=== PATIENT | male | born 1950 | race Caucasian/White ===

== ENCOUNTER 2017-01-22 06:31 | Day surgery (SDC) | payer MEDICARE, BC ==
--- NOTE | 2017-01-21 11:42 | PCM.PREANE ---
<Louie Prieto - Last Filed: 01/22/17 07:01> Preanesthetic Assessment - Allergies Allergies/Adverse Reactions: Allergies Allergy/AdvReac Type Severity Reaction Status Date / Time No Known Allergies Allergy Verified 03/07/15 09:31 PreAnesthesia Questionnaire - HOME MEDS Home Medications: Home Meds Aspirin [Halfprin] 1 tab PO DAILY 03/07/15 [History] Clopidogrel Bisulfate [Plavix] 75 mg PO DAILY 01/18/17 [History] Lisinopril 0.5 tab PO DAILY 01/18/17 [History] Metoprolol Tartrate 0.5 tab PO DAILY 01/18/17 [History] Nitroglycerin [Nitrostat] 1 tab SL ASDIRECTED PRN 01/18/17 [History] atorvaSTATin Calcium [Atorvastatin Calcium] 40 mg PO DAILY 01/18/17 [History] - CURRENT (IN HOUSE) MEDS Current Meds: Current Medications Lactated Ringer's (Ringers, Lactated) 1,000 mls @ 100 mls/hr IV ASDIRECTED [facility] Last Admin: 01/22/17 06:49 Dose: 100 mls/hr Discontinued Medications Cefazolin Sodium/Dextrose 1 gm (/ Premix) 50 mls @ 100 mls/hr IV ONCALL ONE Stop: 01/22/17 00:30 Preanesthetic Assessment - REVIEW OF SYSTEMS Constitutional: Reports: no symptoms CONTENT MANAGER: Reports: no symptoms Respiratory: Reports: no symptoms Cardiovascular: Reports: no symptoms GI: Reports: no symptoms Other: Reports: None - PHYSICAL ASSESSMENT Vital Signs: Last Vital Signs Temp 98.1 F 01/22/17 06:46 Pulse 64 01/22/17 06:46 Resp 14 01/22/17 06:46 BP 121/81 01/22/17 06:46 Pulse Ox 99 01/22/17 06:46 ASA Class: 3 Mental Status: Alert & Oriented x3 Airway Class: Mallampati = 2 Dentition: Reports: Partial (upper), Missing Tooth/Teeth (lower frontal irregular teeth) ROM/Head Extension: Full Respiratory Status: lungs clear to auscultation bilaterally Cardiovascular Status: regular rate & rhythm, no murmur - ALLERGIES Allergies/Adverse Reactions: Allergies Allergy/AdvReac Type Severity Reaction Status Date / Time No Known Allergies Allergy Verified 03/07/15 09:31 - BLOOD Blood Available: No Product(s) Available: None - ANESTHESIA PLAN Preop Beta Estevan: Yes Beta Estevan: Metoprolol Anesthesia Type Planned: General Anesthesia (LMA vs OETT (discuss with surgeon)) - ACKNOWLEDGEMENTS Pt an Appropriate Candidate for the Planned Anesthesia: Yes Alternatives and Risks of Anesthesia Discussed w Pt/Guardian: Yes Pt/Guardian Understands and Agrees with Anesthesia Plan: Yes <Allen Patel - Last Filed: 02/25/17 20:28> PreAnesthesia Questionnaire Other HEENT History: upper partial Cardiovascular History: Reports: Cardiomyopathy, High cholesterol, Hypertension , [place], Stents Other Cardiovascular History: AMI on Oct 14, 2015, coronary stents placed Oct 14 and Oct 162014. Doing well. Passed stress test 12/19/15. plavix stopped 8 day ago, asa continued. Mild CHF -- EF of 40-45% 16 months ago. 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 2015 from Prostate Ca Neurological Surgical History: Reports: Lumbar spine Other Neurological Surgeries/Procedures: hx back surgery - SUBSTANCE USE Smoking Status *Q: Never Smoker Second Hand Smoke Exposure: No Days Per Week of Alcohol Use: 0 Number of Drinks Per Day: 0 Total Drinks Per Week: 0 Recreational Drug Use History: No Preanesthetic Assessment - ANESTHESIA/TRANSFUSION/FAMILY HX Anesthesia/Transfusion History: No Prior Transfusion(s), Prior Anesthesia Other Type of Anesthesia Reaction Comment: Denies any known problem in past, ' maybe little motion sickness' Family History of Anesthesia Reaction: No Intubation History: Unknown - PHYSICAL ASSESSMENT Vital Signs: Last Vital Signs Temp 98.1 F 01/22/17 06:46 Pulse 64 01/22/17 06:46 Resp 14 01/22/17 06:46 BP 121/81 01/22/17 06:46 Pulse Ox 99 01/22/17 06:46 Height: 1.8 m Weight: 0 g ASA Class: 3
[~2017-01-22 06:31] MED LIST: Lactated Ringers 1,000 ML IV SCH; ceFAZolin 1 GM in Premix Bag 1 BAG IV ONE
[2017-01-22] MEDS ORDERED: fentaNYL 100 MCG/2 ML SDV ONE ×2 (07:28→09:26)
[2017-01-22] MEDS ORDERED: Bupivacaine 0.5% 10 ML SDV ONE (07:28)
[2017-01-22] MEDS ORDERED: Midazolam 1 MG/ML 2 ML SDV ONE (07:28)
[2017-01-22] MEDS ORDERED: Propofol 200 MG/20 ML SDV ONE (07:28)
[2017-01-22] MEDS ORDERED: Rocuronium 10 MG/ML 10 ML Syringe ONE (07:28)
[2017-01-22] MEDS ORDERED: Lidocaine 2% 5 ML SDV ONE (07:28)
[2017-01-22] MEDS ORDERED: Phenylephrine/Normal Saline 100 MCG/ML 10 ML Syringe ONE (08:18)
[2017-01-22] MEDS ORDERED: fentaNYL 100 MCG/2 ML SDV IVPUSH PRN (08:27)
[2017-01-22] MEDS ORDERED: Ketorolac 30 MG/ML SDV ONE (08:32)
[2017-01-22] MEDS ORDERED: Ondansetron 4 MG/2 ML SDV ONE (08:32)
--- NOTE | 2017-01-22 10:23 | PCM.POSTAN ---
POST ANESTHESIA ASSESSMENT - MENTAL STATUS Mental Status: alert, oriented - RESPIRATORY Respiratory Status: respiratory rate WNL, airway patent, O2 saturation stable - CARDIOVASCULAR CV Status: pulse rate WNL, blood pressure stable - GASTROINTESTINAL GI Status: no symptoms - POST OP HYDRATION Hydration Status: adequate & stable
--- NOTE | 2017-01-22 11:32 | PCM48HPAN ---
Post Anesthesia Note - EVALUATION WITHIN 48HRS OF ANESTHETIC Vital Signs in Normal Range: Yes Patient Participated in Evaluation: Yes Respiratory Function Stable: Yes Airway Patent: Yes Cardiovascular Function Stable: Yes Hydration Status Stable: Yes Pain Control Satisfactory: Yes Nausea and Vomiting Control Satisfactory: Yes Mental Status Recovered: Yes
[2017-01-22 12:06] VITALS: BP 106/71
--- NOTE | 2017-01-22 17:08 | OR ---
SURGEON: Tanya Watters M.D. DATE OF PROCEDURE: 01/22/2017 PREOPERATIVE DIAGNOSIS: Right inguinal scrotal hernia. POSTOPERATIVE DIAGNOSIS: Right inguinal scrotal hernia. OPERATION: Repair of the same. DESCRIPTION OF PROCEDURE: The patient was given general anesthesia. He is in the supine position. His lower abdomen, external genitalia were all prepped and draped with sterile drapes. Right groin incision was made and carried all the way down to the external oblique aponeurosis. It was then cut. The hernia sac was identified. The distal part was and left behind. The proximal part was closed with a pursestring of 2-0 silk suture. The defect was then repaired using conjoint tendon after a relaxing incision was made. The conjoint tendon was sutured using 0 silk interrupted sutures to the base of the inguinal ligament. The cord structures were then placed back in the inguinal canal and the external oblique aponeurosis was closed using interrupted 2-0 silk sutures. The subcutaneous tissue was reapproximated with 3-0 chromic. The skin was closed with enzo. Estimated blood loss under 20 mL. The patient tolerated the procedure well and was moved to recovery room in good condition. JAMEEL / DUSTIN /[id number]
== END 2017-01-22 12:00 | disposition home or self-care (01) ==
LOC: MW.SDS 06:31
PROVIDERS: ATTEND Urology
DX: K40.90 Unilateral inguinal hernia, without obstruction or gangrene, not specified as recurrent (principal); I10 Essential (primary) hypertension; E78.00 Pure hypercholesterolemia, unspecified; E78.5 Hyperlipidemia, unspecified; Z79.82 Long term (current) use of aspirin; Z79.899 Other long term (current) drug therapy; Z85.46 Personal history of malignant neoplasm of prostate; Z98.890 Other specified postprocedural states; Z95.5 Presence of coronary angioplasty implant and graft
CPT/HCPCS: 49505; J0690; J1885; J2250; J2405; J3010; J7120; 00830; 88304; J2704

== ENCOUNTER 2017-09-19 17:39 | Emergency (ER) | payer MEDICARE, BC ==
[2017-09-19] MEDS ORDERED: Morphine 10 MG/ML Syringe IM ONE (18:49)
--- NOTE | 2017-09-19 18:50 | EDM.PDOC ---
ED HPI GENERAL MEDICAL PROBLEM - General Chief Complaint: Back Pain or Injury Stated Complaint: BACK PAIN Time Seen by Provider: 09/19/17 18:25 Source of Information: Reports: Patient, Family History Limitations: Reports: No Limitations - History of Present Illness INITIAL COMMENTS - FREE TEXT/NARRATIVE: HISTORY AND PHYSICAL: History of present illness: [Patient comes to the emergency room complaining of continued low back pain. He reports a history of herniated disks in his back and is scheduled to have surgery with Dr. Sharma in [place] on September 25. He has been taking numerous narcotics for his chronic low back pain over the past several months. In the past week, his pain has worsened significantly which he attributes to numerous car rides for a consultation with Dr. Sharma in [place] as well as with his [employer] in [place]. One week ago, he was prescribed Percocet 10/325 one half to one tablet every 4-6 hours as needed for discomfort by Dr. Chua his PCP. He's been taking 2 tablets at a time which is not at all improving his pain. He was advised by his PCP's office to come to the emergency room for evaluation of his pain. The patient states that his pain is no different than had been previously but it just feels worse and has not improved with Percocet. Has had pain in his right thigh which is unchanged. He denies any loss of bowel and bladder. No changes to urination or stools. Back has been very painful requiring him to crawl throughout the home. He does not have any assistive devices at his house. He is sitting in a wheelchair for this examination today.] Review of systems: As per history of present illness and below otherwise all systems reviewed and negative. Past medical history: As per history of present illness and as reviewed below otherwise noncontributory. Surgical history: As per history of present illness and as reviewed below otherwise noncontributory. Social history: No reported history of drug or alcohol abuse. Family history: As per history of present illness and as reviewed below otherwise noncontributory. Physical exam: Gen.: Well-developed well-nourished male in no acute distress. Sitting comfortably in wheelchair. HEENT: Atraumatic, normocephalic. Lungs: Clear to auscultation, breath sounds equal bilaterally. Heart: S1S2, regular rate and rhythm. Abdomen: Soft, nondistended, nontender. Negative for masses guarding and rebound. Genitourinary: Deferred. Rectal: Deferred. Extremities: Atraumatic, negative for cords or calf pain. Patellar reflexes are 2+ and equal bilaterally. Neurovascular unremarkable. Neuro: Awake, alert, oriented. Exam nonfocal. Therapeutics: [morphine 5mg IM] Impression: [low back pain, chronic] Plan: [Discussed with patient that he has already been taking maximum doses of narcotics that could be prescribed through this ER and that we can offer him IV/ IM medication for relief for tonight only, and that he is advised to follow up with his PCP tomorrow to discuss pain treatment options to get him through the weekend. He experiences significant relief in his pain and ambulates in exam room. Would like to be discharged to home. Continue all other medications as prescribed. All questions are answered and concerns are addressed. ] Definitive disposition and diagnosis as appropriate pending reevaluation and review of above. Lower Back Pain Score (Numeric/FACES): 12 - Related Data Allergies Allergy/AdvReac Type Severity Reaction Status Date / Time No Known Allergies Allergy Verified 09/19/17 17:49 Home Meds: Home Meds Lisinopril 1 tab PO BID 01/18/17 [History] Metoprolol Tartrate 1 tab PO BID 01/18/17 [History] atorvaSTATin Calcium [Atorvastatin Calcium] 40 mg PO DAILY 01/18/17 [History] Bisacodyl [Correctol] 5 mg PO DAILY 09/19/17 [History] oxyCODONE HCl/Acetaminophen [Percocet 10-325 mg Tablet] 1 tab PO Q4HR PRN [History] Past Medical History Other HEENT History: upper partial Cardiovascular History: Reports: Cardiomyopathy, High Cholesterol, Hypertension , [place], Stents Other Cardiovascular History: AMI on Oct 14, 2015, coronary stents placed Oct 14 and Oct 162014. Doing well. Passed stress test 12/19/15. plavix stopped 8 day ago, asa continued. Mild CHF -- EF of 40-45% 16 months ago. Genitourinary History: Reports: Prostate Disorder, Renal Calculus Musculoskeletal History: Reports: Osteoarthritis - Past Surgical History Head Surgeries/Procedures: Reports: None HEENT Surgical History: Reports: Tonsillectomy Cardiovascular Surgical History: Reports: Coronary Artery Stent Neurological Surgical History: Reports: Lumbar Spine Social & Family History - Family History Family Medical History: Noncontributory - Tobacco Use Smoking Status *Q: Never Smoker Years of Tobacco use: 0 Second Hand Smoke Exposure: No - Caffeine Use Caffeine Use: Reports: Coffee - Alcohol Use Days Per Week of Alcohol Use: 0 Number of Drinks Per Day: 0 Total Drinks Per Week: 0 - Recreational Drug Use Recreational Drug Use: No Drug Use in Last 12 Months: No ED ROS GENERAL - Review of Systems Review Of Systems: ROS reveals no pertinent complaints other than HPI. ED EXAM,LOWER BACK PAIN/INJURY - Physical Exam Exam: See Below Course - Vital Signs Last Recorded V/S: Last Vital Signs Temp 98.3 F 09/19/17 17:55 Pulse 68 09/19/17 19:42 Resp 16 09/19/17 19:42 BP 118/78 09/19/17 19:42 Pulse Ox 96 09/19/17 19:42 - Orders/Labs/Meds Meds: Medications Discontinued Medications Generic Name Dose Route Start Last Admin Trade Name aLni PRN Reason Stop Dose Admin Morphine Sulfate 5 mg 09/19/17 18:49 09/19/17 18:59 Morphine IM 09/19/17 18:50 5 mg ONETIME ONE Administration Departure - Departure Time of Disposition: 19:30 Disposition: Home, Self-Care 01 Condition: Good Clinical Impression: Back pain - Discharge Information Instructions: Back Pain, Adult Referrals: Major Chua MD [Primary Care Provider] - Forms: ED Department Discharge Additional Instructions: The following information is given to patients seen in the emergency department who are being discharged to home. This information is to outline your options for follow-up care. We provide all patients seen in our emergency department with a follow-up referral. The need for follow-up, as well as the timing and circumstances, are variable depending upon the specifics of your emergency department visit. If you don't have a primary care physician on staff, we will provide you with a referral. We always advise you to contact your personal physician following an emergency department visit to inform them of the circumstance of the visit and for follow-up with them and/or the need for any referrals to a consulting specialist. The emergency department will also refer you to a specialist when appropriate. This referral assures that you have the opportunity for follow-up care with a specialist. All of these measure are taken in an effort to provide you with optimal care, which includes your follow-up. Under all circumstances we always encourage you to contact your private physician who remains a resource for coordinating your care. When calling for follow-up care, please make the office aware that this follow-up is from your recent emergency room visit. If for any reason you are refused follow-up, please contact the [facility] emergency department at and asked to speak to the emergency department charge nurse. [address] [address] Follow-up with Dr. Chua tomorrow morning as we discussed. Return to ER as needed as discussed.
[2017-09-19 19:44] VITALS: BP 118/78
== END 2017-09-19 19:42 | disposition home or self-care (01) ==
LOC: MW.ED 17:39
DX: G89.29 Other chronic pain (principal); M54.5 Low back pain; Z79.899 Other long term (current) drug therapy
CPT/HCPCS: 96372; 99283; J2270; 99281

== ENCOUNTER 2018-08-02 13:46 | Emergency (ER) | payer MEDICARE, BC ==
[2018-08-02] MEDS ORDERED: Sodium Chloride 0.9% 2.5 ML Syringe FLUSH PRN (14:05)
[2018-08-02] MEDS ORDERED: Sodium Chloride 0.9% 10 ML Syringe FLUSH PRN (14:05)
--- NOTE | 2018-08-02 14:06 | EDM.PDOC ---
ED HPI GENERAL MEDICAL PROBLEM - General Chief Complaint: Fever Stated Complaint: SICK Time Seen by Provider: 08/02/18 13:48 Source of Information: Reports: Patient History Limitations: Reports: No Limitations - History of Present Illness INITIAL COMMENTS - FREE TEXT/NARRATIVE: History of present illness: []Having fevers and chills with violent shaking 5 days ago. His any chest congestion or cough, sore throat, headache, ear pain, abdominal pain or difficulty urinating. Review of systems: As per history of present illness and below otherwise all systems reviewed and negative. Past medical history: As per history of present illness and as reviewed below otherwise noncontributory. Surgical history: As per history of present illness and as reviewed below otherwise noncontributory. Social history: No reported history of drug or alcohol abuse. Family history: As per history of present illness and as reviewed below otherwise noncontributory. Physical exam: General: Well developed, well nourished in NAD HEENT: Atraumatic, normocephalic, pupils reactive, negative for conjunctival pallor or scleral icterus, mucous membranes moist, throat clear, neck supple, nontender, trachea midline. Lungs: Clear to auscultation, breath sounds equal bilaterally, chest nontender. Heart: S1S2, regular, negative for clicks, rubs, or JVD. Abdomen: Soft, nondistended, nontender. Negative for masses or hepatosplenomegaly. Negative for costovertebral tenderness. Pelvis: Stable nontender. Genitourinary: Deferred. Rectal: Deferred. Extremities: Atraumatic, negative for cords or calf pain. Neurovascular unremarkable. Neuro: Awake, alert, oriented. Cranial nerves II through XII unremarkable. Cerebellum unremarkable. Motor and sensory unremarkable throughout. Exam nonfocal. Skin:warm and dry Diagnostics: CBC normal, chemistry mildly low sodium, lactate, blood cultures, chest x-ray shows mild atelectasis with chronic fibrotic changes UA which patient refused to give. Therapeutics: IV hydrated with 1 L normal saline ED Course: Unremarkable Impression: As hot flashes and chills known etiology Prescriptions: None Plan: Follow-up with primary care after 48 hours REED symptoms worsen or change encourage deep breathing and cough. Definitive disposition and diagnosis as appropriate pending reevaluation and review of above. - Related Data Allergies Allergy/AdvReac Type Severity Reaction Status Date / Time No Known Allergies Allergy Verified 08/02/18 13:56 Home Meds: Home Meds Lisinopril 1 tab PO BID 01/18/17 [History] Metoprolol Tartrate 1 tab PO BID 01/18/17 [History] atorvaSTATin Calcium [Atorvastatin Calcium] 40 mg PO DAILY 01/18/17 [History] Past Medical History Other HEENT History: upper partial Cardiovascular History: Reports: Cardiomyopathy, High Cholesterol, Hypertension , [place], Stents Other Cardiovascular History: AMI on Oct 14, 2015, coronary stents placed Oct 14 and Oct 162014. Doing well. Passed stress test 12/19/15. plavix stopped 8 day ago, asa continued. Mild CHF -- EF of 40-45% 16 months ago. Genitourinary History: Reports: Prostate Disorder, Renal Calculus Musculoskeletal History: Reports: Osteoarthritis - Past Surgical History Head Surgeries/Procedures: Reports: None HEENT Surgical History: Reports: Tonsillectomy Cardiovascular Surgical History: Reports: Coronary Artery Stent Neurological Surgical History: Reports: Lumbar Spine Social & Family History - Family History Family Medical History: Noncontributory - Caffeine Use Caffeine Use: Reports: Coffee ED ROS GENERAL - Review of Systems Review Of Systems: ROS reveals no pertinent complaints other than HPI. ED EXAM, GENERAL - Physical Exam Exam: See Below (See history of present illness) Course - Vital Signs Last Recorded V/S: Last Vital Signs Temp 99.5 F 08/02/18 13:59 Pulse 83 08/02/18 13:59 Resp 18 08/02/18 13:59 BP 97/57 L 08/02/18 13:59 Pulse Ox 98 08/02/18 13:59 - Orders/Labs/Meds Orders: Active Orders 24 hr Category Date Time Status Chest 2V [CR] Stat Exams 08/02/18 14:05 Taken CULTURE BLOOD [BC] Stat Lab 08/02/18 14:26 Received CULTURE BLOOD [BC] Stat Lab 08/02/18 14:34 Received UA W/MICROSCOPIC [URIN] Stat Lab 08/02/18 14:06 Ordered Sodium Chloride 0.9% [Saline Flush] Med 08/02/18 14:05 Active 10 ml FLUSH ASDIRECTED PRN Sodium Chloride 0.9% [Saline Flush] Med 08/02/18 14:05 Active 2.5 ml FLUSH ASDIRECTED PRN Blood Culture x2 Reflex Set [OM.PC] Stat Oth 08/02/18 14:05 Ordered Saline Lock Insert [OM.PC] Stat Oth 08/02/18 14:05 Ordered Medication Orders Sodium Chloride (Saline Flush) 10 ml FLUSH ASDIRECTED PRN PRN Reason: Keep Vein Open Sodium Chloride (Saline Flush) 2.5 ml FLUSH ASDIRECTED PRN PRN Reason: Keep Vein Open Labs: Laboratory Tests 08/02/18 08/02/18 08/02/18 Range/Units 14:26 14:26 14:26 WBC 4.52 (4.0-11.0) K/uL RBC 5.05 (4.50-5.90) M/uL Hgb 14.7 (13.0-17.0) g/dL Hct 41.6 (38.0-50.0) % MCV 82.4 (80.0-98.0) fL MCH 29.1 (27.0-32.0) pg MCHC 35.3 (31.0-37.0) g/dL RDW Std Deviation 40.0 (28.0-62.0) fl RDW Coeff of [place] 13 (11.0-15.0) % Plt Count 175 (150-400) K/uL MPV 10.10 (7.40-12.00) fL Neut % (Auto) 77.2 (48.0-80.0) % Lymph % (Auto) 13.5 L (16.0-40.0) % [place] % (Auto) 9.1 (0.0-15.0) % Eos % (Auto) 0.0 (0.0-7.0) % Baso % (Auto) 0.2 (0.0-1.5) % Neut # (Auto) 3.5 (1.4-5.7) K/uL Lymph # (Auto) 0.6 (0.6-2.4) K/uL [place] # (Auto) 0.4 (0.0-0.8) K/uL Eos # (Auto) 0.0 (0.0-0.7) K/uL Baso # (Auto) 0.0 (0.0-0.1) K/uL Nucleated RBC % 0.0 /100WBC Nucleated RBCs # 0 K/uL Lactate 1.8 (0.20-2.00) mmol/L Sodium 131 L (136-148) mmol/L Potassium 3.9 (3.5-5.1) mmol/L Chloride 97 L (98-107) mmol/L Carbon Dioxide 28.8 (21.0-32.0) mmol/L BUN 14 (7.0-18.0) mg/dL Creatinine 1.0 (0.8-1.3) mg/dL Est Cr Clr Drug Dosing TNP Estimated GFR (MDRD) > 60.0 ml/min Glucose 94 (74-106) mg/dL Calcium 8.7 (8.5-10.1) mg/dL Total Bilirubin 0.9 (0.2-1.0) mg/dL AST 44 H (15-37) IU/L ALT 48 (14-63) IU/L Alkaline Phosphatase 87 (46-116) U/L Total Protein 6.2 L (6.4-8.2) g/dL Albumin 3.1 L (3.4-5.0) g/dL Globulin 3.1 (2.0-3.5) g/dL Albumin/Globulin Ratio 1.0 L (1.3-2.8) Meds: Medications Generic Name Dose Route Start Last Admin Trade Name Freq PRN Reason Stop Dose Admin Sodium Chloride 10 ml 08/02/18 14:05 Saline Flush FLUSH ASDIRECTED PRN Keep Vein Open Sodium Chloride 2.5 ml 08/02/18 14:05 Saline Flush FLUSH ASDIRECTED PRN Keep Vein Open Discontinued Medications Generic Name Dose Route Start Last Admin Trade Name Freq PRN Reason Stop Dose Admin Sodium Chloride 1,000 mls @ 999 mls/hr 08/02/18 14:12 08/02/18 14:27 Normal Saline IV 08/02/18 15:12 999 mls/hr .Bolus ONE Administration Departure - Departure Time of Disposition: 16:19 Disposition: Home, Self-Care 01 Condition: Good Clinical Impression: Chills (without fever) - Discharge Information *PRESCRIPTION DRUG MONITORING PROGRAM REVIEWED*: No *COPY OF PRESCRIPTION DRUG MONITORING REPORT IN PATIENT RA: No Referrals: Major Chua MD [Primary Care Provider] - Forms: ED Department Discharge Additional Instructions: The following information is given to patients seen in the emergency department who are being discharged to home. This information is to outline your options for follow-up care. We provide all patients seen in our emergency department with a follow-up referral. The need for follow-up, as well as the timing and circumstances, are variable depending upon the specifics of your emergency department visit. If you don't have a primary care physician on staff, we will provide you with a referral. We always advise you to contact your personal physician following an emergency department visit to inform them of the circumstance of the visit and for follow-up with them and/or the need for any referrals to a consulting specialist. The emergency department will also refer you to a specialist when appropriate. This referral assures that you have the opportunity for follow-up care with a specialist. All of these measure are taken in an effort to provide you with optimal care, which includes your follow-up. Under all circumstances we always encourage you to contact your private physician who remains a resource for coordinating your care. When calling for follow-up care, please make the office aware that this follow-up is from your recent emergency room visit. If for any reason you are refused follow-up, please contact the [facility] Emergency Department at and asked to speak to the emergency department charge nurse. Follow-up with Primary care encourage deep breathing and cough return to ER if symptoms worsen or change [facility] [address] [place] [id number] - My Orders Last 24 Hours: My Active Orders 08/02/18 14:05 Chest 2V [CR] Stat Sodium Chloride 0.9% [Saline Flush] 10 ml FLUSH ASDIRECTED PRN Sodium Chloride 0.9% [Saline Flush] 2.5 ml FLUSH ASDIRECTED PRN Blood Culture x2 Reflex Set [OM.PC] Stat Saline Lock Insert [OM.PC] Stat 08/02/18 14:06 UA W/MICROSCOPIC [URIN] Stat 08/02/18 14:26 CULTURE BLOOD [BC] Stat 08/02/18 14:34 CULTURE BLOOD [BC] Stat - Assessment/Plan Last 24 Hours: My Active Orders 08/02/18 14:05 Chest 2V [CR] Stat Sodium Chloride 0.9% [Saline Flush] 10 ml FLUSH ASDIRECTED PRN Sodium Chloride 0.9% [Saline Flush] 2.5 ml FLUSH ASDIRECTED PRN Blood Culture x2 Reflex Set [OM.PC] Stat Saline Lock Insert [OM.PC] Stat 08/02/18 14:06 UA W/MICROSCOPIC [URIN] Stat 08/02/18 14:26 CULTURE BLOOD [BC] Stat 08/02/18 14:34 CULTURE BLOOD [BC] Stat
[2018-08-02] MEDS ORDERED: Sodium Chloride 0.9% 1,000 ML IV ONE (14:12)
[2018-08-02 14:57] LABS: CHLORIDE,CL 97 mmol/L (98-107); SODIUM,NA 131 mmol/L (136-148)
[2018-08-02 16:35] VITALS: BP 122/52
--- NOTE | 2018-08-04 10:57 | CR ---
EXAM DATE: 08/02/18 PATIENT'S AGE: 68 Patient: WENDY VILLA Facility: [place], [place] Site . Site : [id number] Study: XRay Chest [id number]/[id number] 3:14:12 PM Ordering Physician: Michael Jones Final Report: INDICATION: Pain. Shortness of breath. TECHNIQUE: PA and lateral chest x-ray. FINDINGS: No comparison films. Fine nodular interstitial infiltrate in prominence throughout both lungs which if chronic can be fibrotic but if acute can be related to interstitial edema. Comparison with any available previous films or followup films suggested. Mild areas of linear atelectasis or scarring in both lungs. Heart size is within normal limits. Chest otherwise unremarkable. Dictated by Jamison Ann MD @ Aug 02 2018 3:28PM (Electronic Signature) Report Signed by Proxy. DAVIDA
== END 2018-08-02 16:32 | disposition home or self-care (01) ==
LOC: MW.ED 13:46
DX: R68.83 Chills (without fever) (principal); E78.00 Pure hypercholesterolemia, unspecified; I10 Essential (primary) hypertension; I25.2 Old myocardial infarction; Z95.5 Presence of coronary angioplasty implant and graft; Z79.899 Other long term (current) drug therapy
CPT/HCPCS: 36415; 71046; 80053; 83605; 85025; 87040; 96360; 99283; J7040

== ENCOUNTER 2021-11-05 09:34 | Emergency (ER) | payer MEDICARE, OTHER ==
[2021-11-05 10:01] VITALS: BP 115/69; PULSE 81
--- NOTE | 2021-11-05 10:03 | EDM.PDOC ---
ED HPI GENERAL MEDICAL PROBLEM - General Chief Complaint: Skin Complaint Stated Complaint: RASH Time Seen by Provider: 11/05/21 09:35 - History of Present Illness INITIAL COMMENTS - FREE TEXT/NARRATIVE: 71-year-old male presenting with burning rash to the right neck and shoulder. Patient developed a mild cough 4 days ago and this is essentially resolved but he had some discomfort on the right side particularly when laying down or when tired or short touch the area. 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 It was noticed by his this morning. No fevers no myalgias no sore throat or runny nose. Patient is not on any steroids or other immunocompromising medication he has no history of immune deficiency. Symptoms are constant and moderate without alleviating factors or radiation or other associated symptoms. - Related Data Allergies Allergy/AdvReac Type Severity Reaction Status Date / Time No Known Allergies Allergy Verified 08/02/18 13:56 Home Meds: Home Meds Lisinopril 1 tab PO BID 01/18/17 [History] Metoprolol Tartrate 1 tab PO BID 01/18/17 [History] atorvaSTATin Calcium [Atorvastatin Calcium] 40 mg PO DAILY 01/18/17 [History] valACYclovir [Valtrex] 1,000 mg PO TID 7 Days #21 tab 11/05/21 [Rx] Past Medical History Other HEENT History: upper partial Cardiovascular History: Reports: Cardiomyopathy, High Cholesterol, Hypertension, VA, Stents Other Cardiovascular History: AMI on Oct 14, 2015, coronary stents placed Oct 14 and Oct 162014. Doing well. Passed stress test 12/19/15. plavix stopped 8 day ago, asa continued. Mild CHF -- EF of 40-45% 16 months ago. Genitourinary History: Reports: Prostate Disorder, Renal Calculus Musculoskeletal History: Reports: Osteoarthritis - Past Surgical History Head Surgeries/Procedures: Reports: None HEENT Surgical History: Reports: Tonsillectomy Cardiovascular Surgical History: Reports: Coronary Artery Stent Neurological Surgical History: Reports: Lumbar Spine Social & Family History - Family History Family Medical History: No Pertinent Family History - Caffeine Use Caffeine Use: Reports: Coffee ED ROS GENERAL - Review of Systems Review Of Systems: See Below Free Text/Narrative/Comment: General: No fever. Skin: Per HPI Eyes: No vision problems. ENT: No sore throat. Neck: No neck stiffness. Respiratory: No shortness of breath. Cardiac: No chest pain. Gastrointestinal: No nausea, vomiting or abdominal pain. Musculoskeletal: No myalgias/arthralgias. Neurologic: No headache. ED EXAM, SKIN/RASH Exam: See Below Text/Narrative:: General Appearance: No acute distress, appears comfortable Skin: Raised vesicular rash with an erythematous base starts in the right cervical region tracks down over the right shoulder onto the right anterior chest no base of the confines of right cervical dermatome there is no overlying honey crusting or drainage HEENT: Normocephalic/atraumatic, sclera anicteric, mucous membranes moist Neck: Normal range of motion Chest and Lungs: Normal work of breathing Cardiovascular: Intact distal perfusion Psychiatric: Appropriate, cooperative Course - Vital Signs Last Recorded V/S: Last Vital Signs Temp 96.9 F 11/05/21 09:47 Pulse 81 11/05/21 09:47 Resp 16 11/05/21 09:47 BP 115/69 11/05/21 09:47 Pulse Ox 96 11/05/21 09:47 Departure - Departure Time of Disposition: 10:01 Disposition: Home, Self-Care 01 Condition: Good Clinical Impression: Herpes zoster - Discharge Information *PRESCRIPTION DRUG MONITORING PROGRAM REVIEWED*: Not Applicable *COPY OF PRESCRIPTION DRUG MONITORING REPORT IN PATIENT RA: Not Applicable Prescriptions: valACYclovir [Valtrex] 1,000 mg PO TID 7 Days #21 tab Instructions: Shingles Forms: ED Department Discharge Additional Instructions: Your rash should slowly improve with the antiviral medication. I encourage you to follow-up with your primary care doctor for reassessment and so that he can follow along in the healing. If you develop a fever the rash continues to spread or any other new symptoms that concern you please call your doctor or return to the ER. The following information is given to patients seen in the emergency department who are being discharged to home. This information is to outline your options for follow-up care. We provide all patients seen in our emergency department with a follow-up referral. The need for follow-up, as well as the timing and circumstances, are variable depending upon the specifics of your emergency department visit. If you don't have a primary care physician on staff, we will provide you with a referral. We always advise you to contact your personal physician following an emergency department visit to inform them of the circumstance of the visit and for follow-up with them and/or the need for any referrals to a consulting specialist. The emergency department will also refer you to a specialist when appropriate. This referral assures that you have the opportunity for follow-up care with a specialist. All of these measure are taken in an effort to provide you with optimal care, which includes your follow-up. Under all circumstances we always encourage you to contact your private physician who remains a resource for coordinating your care. When calling for follow-up care, please make the office aware that this follow-up is from your recent emergency room visit. If for any reason you are refused follow-up, please contact the [facility] Emergency Department at and asked to speak to the emergency department charge nurse. Sepsis Event Note (ED) - Focused Exam Vital Signs: Vital Signs Temp Pulse Resp BP Pulse Ox 11/05/21 09:47 96.9 F 81 16 115/69 96 - Assessment/Plan Assessment:: 71-year-old male presenting with signs and symptoms most consistent with shingles. No signs of overlying bacterial infection. Patient is not immunocompromise. No signs or symptoms of herpes ophthalmicus no signs of herpes oticus. Patient felt appropriate for valacyclovir and primary care follow-up return precautions discussed and understood.
== END 2021-11-05 10:23 | disposition home or self-care (01) ==
LOC: MW.ED 09:34
DX: B02.9 Zoster without complications (principal); E78.00 Pure hypercholesterolemia, unspecified; I11.0 Hypertensive heart disease with heart failure; I50.9 Heart failure, unspecified; I25.2 Old myocardial infarction; Z79.899 Other long term (current) drug therapy
CPT/HCPCS: 99282

== ENCOUNTER 2024-07-17 17:24 | Emergency (ER) | payer MEDICARE, OTHER ==
[2024-07-17] MEDS: Sodium Chloride 0.9% 1,000 ML IV STA (18:07)
[2024-07-17 18:16] LABS: BASOPHILS ABSOLUTE AUTO 0.02 K/uL (0.00-0.20); BASOPHILS PERCENT AUTO 0.2 % (0.0-1.0); EOSINOPHILS ABSOLUTE AUTO 0.01 K/uL (0.00-0.45); EOSINOPHILS PERCENT AUTO 0.1 % (0.0-6.0); HEMATOCRIT 43.9 % (42.0-52.0); HEMOGLOBIN 14.9 g/dL (14.0-18.0); IMMATURE GRAN ABSOLUTE AUTO 0.04 K/uL (0.00-0.05); IMMATURE GRAN PERCENT AUTO 0.5 % (0.0-0.4); LYMPHOCYTES ABSOLUTE AUTO 0.58 K/uL (1.00-4.80); LYMPHOCYTES PERCENT AUTO 6.7 % (24.0-44.0); MEAN CORPUSCULAR HEMOGLOBIN 28.8 pg (28.0-32.0); MEAN CORPUSCULAR HGB CONC 33.9 g/dL (32.0-36.0); MEAN CORPUSCULAR VOLUME 84.9 fL (83.0-99.0); MONOCYTES ABSOLUTE AUTO 1.06 K/uL (0.00-0.80); MONOCYTES PERCENT AUTO 12.2 % (0.0-8.0); NEUTROPHILS ABSOLUTE AUTO 6.96 K/uL (1.80-7.70); NEUTROPHILS PERCENT AUTO 80.3 % (41.0-71.0); PLATELET COUNT,PLT 252 K/uL (150-400); RED BLOOD CELL COUNT 5.17 M/uL (4.52-5.90); WHITE BLOOD CELL COUNT,WBC 8.67 K/uL (3.9-11.3)
[2024-07-17 18:50] LABS: ALBUMIN 3.2 g/dL (3.4-5.0); BILIRUBIN TOTAL 0.7 mg/dL (0.2-1.0); CALCIUM 9.2 mg/dL (8.5-10.1); CARBON DIOXIDE,CO2 27.5 mmol/L (21.0-32.0); CREATININE 1.1 mg/dL (0.8-1.3); EST CRCL DRUG DOSING (CG) 63.7 mL/min; POTASSIUM,K 4.4 mmol/L (3.5-5.1); PROTEIN TOTAL,TP 6.4 g/dL (6.4-8.2)
[2024-07-17 19:14] LABS: APPEARANCE,URINE CLEAR; BILIRUBIN,URINE NEGATIVE (NEGATIVE); COLOR,URINE YELLOW; GLUCOSE,URINE NEGATIVE (NEGATIVE); KETONES,URINE TRACE mg/dL (NEGATIVE); LEUKOCYTE ESTERASE,URINE NEGATIVE (NEGATIVE); NITRITE,URINE NEGATIVE (NEGATIVE); OCCULT BLOOD,URINE NEGATIVE (NEGATIVE); PROTEIN,URINE NEGATIVE (NEGATIVE); UROBILINOGEN,URINE 0.2 EU/dL (<2.0)
[2024-07-17] MEDS: Sodium Chloride 0.9% 10 ML Syringe FLUSH PRN (19:14)
[2024-07-17] MEDS: Sodium Chloride 0.9% 2.5 ML Syringe FLUSH PRN (19:14)
[2024-07-17] MEDS: Iopamidol 755 MG/ML 500 ML Multipack Bottle IVPUSH ONE (19:19)
[2024-07-17 20:12] LABS: CORONAVIRUS COVID-19 NAA POSITIVE (NEGATIVE); INFLUENZA A NAA NEGATIVE (NEGATIVE); INFLUENZA B NAA NEGATIVE (NEGATIVE)
[2024-07-17] MEDS: Amoxicillin/Clavulanate K 875-125 MG Tab PO STA (21:05)
[2024-07-17 21:07] VITALS: BP 112/59; PULSE 71
== END 2024-07-17 21:11 | disposition home or self-care (01) ==
LOC: MW.ED 17:24
DX: U07.1 COVID-19 (principal); K57.32 Diverticulitis of large intestine without perforation or abscess without bleeding; K40.90 Unilateral inguinal hernia, without obstruction or gangrene, not specified as recurrent; I10 Essential (primary) hypertension; E78.00 Pure hypercholesterolemia, unspecified; Z79.899 Other long term (current) drug therapy; Z79.82 Long term (current) use of aspirin; Z75.8 Other problems related to medical facilities and other health care
CPT/HCPCS: 0240U; 36415; 74177; 80053; 81003; 83690; 84484; 85025; 93005; 96360; 99285; A9270; J3490; J7030; Q9967; 93010

== ENCOUNTER 2024-08-04 13:27 | Emergency (ER) | payer MEDICARE, OTHER ==
[2024-08-04] MEDS ORDERED: Sodium Chloride 0.9% 2.5 ML Syringe FLUSH PRN (13:47)
[2024-08-04] MEDS ORDERED: Sodium Chloride 0.9% 10 ML Syringe FLUSH PRN (13:47)
[2024-08-04 14:08] LABS: BASOPHILS ABSOLUTE AUTO 0.03 K/uL (0.00-0.20); BASOPHILS PERCENT AUTO 0.3 % (0.0-1.0); EOSINOPHILS ABSOLUTE AUTO 0.04 K/uL (0.00-0.45); EOSINOPHILS PERCENT AUTO 0.4 % (0.0-6.0); HEMATOCRIT 47.7 % (42.0-52.0); HEMOGLOBIN 15.5 g/dL (14.0-18.0); IMMATURE GRAN ABSOLUTE AUTO 0.03 K/uL (0.00-0.05); IMMATURE GRAN PERCENT AUTO 0.3 % (0.0-0.4); LYMPHOCYTES PERCENT AUTO 8.9 % (24.0-44.0); MEAN CORPUSCULAR HEMOGLOBIN 28.5 pg (28.0-32.0); MEAN CORPUSCULAR HGB CONC 32.5 g/dL (32.0-36.0); MEAN CORPUSCULAR VOLUME 87.7 fL (83.0-99.0); MEAN PLATELET VOLUME 9.6 fL (9.4-12.4); MONOCYTES ABSOLUTE AUTO 0.49 K/uL (0.00-0.80); MONOCYTES PERCENT AUTO 4.3 % (0.0-8.0); NEUTROPHILS ABSOLUTE AUTO 9.68 K/uL (1.80-7.70); NEUTROPHILS PERCENT AUTO 85.8 % (41.0-71.0); PLATELET COUNT,PLT 265 K/uL (150-400); RED BLOOD CELL COUNT 5.44 M/uL (4.52-5.90); WHITE BLOOD CELL COUNT,WBC 11.27 K/uL (3.9-11.3)
[2024-08-04 14:15] LABS: INR 1.04 (0.86-1.11); PTT,PARTIAL THROMBOPLSTIN TIME 26.5 SEC (23.9-30.7)
[2024-08-04 14:34] LABS: A/G RATIO 1.2 (0.9-1.6); ALBUMIN 3.7 g/dL (3.4-5.0); BILIRUBIN TOTAL 0.9 mg/dL (0.2-1.0); CALCIUM 9.5 mg/dL (8.5-10.1); CARBON DIOXIDE,CO2 28.1 mmol/L (21.0-32.0); CREATININE 1.1 mg/dL (0.8-1.3); EST CRCL DRUG DOSING (CG) 63.7 mL/min; POTASSIUM,K 4.1 mmol/L (3.5-5.1); PROTEIN TOTAL,TP 6.9 g/dL (6.4-8.2)
[2024-08-04 18:08] VITALS: BP 126/73; PULSE 69
== END 2024-08-04 18:14 | disposition home or self-care (01) ==
LOC: MW.ED 13:27
DX: R07.89 Other chest pain (principal); I10 Essential (primary) hypertension; E78.00 Pure hypercholesterolemia, unspecified; I25.10 Atherosclerotic heart disease of native coronary artery without angina pectoris; Z86.16 Personal history of COVID-19; Z79.82 Long term (current) use of aspirin; Z79.899 Other long term (current) drug therapy; Z75.8 Other problems related to medical facilities and other health care
CPT/HCPCS: 36415; 71045; 71045-26; 80053; 83690; 84484; 85025; 85610; 85730; 93005; 99285